=== PATIENT | male | born 1995 | race Caucasian/White ===

== ENCOUNTER 2018-05-19 20:51 | Emergency (ER) | payer BC ==
[~2018-05-19] VITALS: Ht 180.3 cm; Wt 104.5 kg
[2018-05-19 21:05] VITALS: BP 130/95
== END 2018-05-19 21:35 | disposition home or self-care (01) ==
LOC: ED 20:51
DX: S61.217A Laceration without foreign body of left little finger without damage to nail, initial encounter (principal); W26.0XXA Contact with knife, initial encounter; Y92.009 Unspecified place in unspecified non-institutional (private) residence as the place of occurrence of the external cause

== ENCOUNTER 2018-07-19 22:12 | Emergency (ER) | payer BC ==
[~2018-07-19] VITALS: Ht 180.3 cm; Wt 102.3 kg
[2018-07-19] MEDS ORDERED: BACTRIM DS TAB1 EACH PO (23:10)
[2018-07-19 23:15] VITALS: BP 145/85
== END 2018-07-19 23:15 | disposition home or self-care (01) ==
LOC: ED 22:12
DX: L02.01 Cutaneous abscess of face (principal); L03.211 Cellulitis of face; F17.210 Nicotine dependence, cigarettes, uncomplicated; Z88.0 Allergy status to penicillin

== ENCOUNTER 2018-07-20 06:47 | Emergency (ER) | payer BC ==
[~2018-07-20] VITALS: Ht 180.3 cm; Wt 102.3 kg
[~2018-07-20 06:47] MED LIST: BACTRIM DS TAB1 EACH PO
[2018-07-20 08:04] LABS: BASO # 0.1 (0.02-0.10); EOS # 0.1 (0.04-0.40); EOS % 1.1 % (0.0-4.0); HEMATOCRIT 40.8 % (42.0-52.0); LYMPH# 2.1 (1.50-4.00); MEAN CELL VOLUME 91 fl (78-100); MEAN CORPUSCULAR HEMOGLOBIN 31 pg (27-31); MEAN CORPUSCULAR HGB CONC 34 g/dL (33-37); MEAN PLATELET VOLUME 9.8 fl (7.4-10.4); MONO # 1.2 (0.20-0.80); NEU # 7.8 (1.40-6.50); PLATELET COUNT 261 K/mm3 (130-400); RED BLOOD COUNT 4.51 M/mm3 (4.20-5.60); RED CELL DISTRIBUTION WIDTH 11.9 % (11.5-14.5); WHITE BLOOD COUNT 11.3 K/mm3 (4.8-10.8)
[2018-07-20 08:09] LABS: CALCIUM 9.1 mg/dL (8.4-10.2); POTASSIUM 4.1 mmol/L (3.6-5.0)
[2018-07-20 08:50] VITALS: BP 143/80
== END 2018-07-20 08:56 | disposition home or self-care (01) ==
LOC: ED 06:47
PROVIDERS: Physician Assistant
DX: R22.0 Localized swelling, mass and lump, head (principal); J32.9 Chronic sinusitis, unspecified; Z88.0 Allergy status to penicillin; F17.210 Nicotine dependence, cigarettes, uncomplicated
CPT/HCPCS: J2930; Q9967